=== PATIENT | male | born 1960 | race Two or more races ===

== ENCOUNTER 2022-09-15 17:19 | Inpatient (IN) | payer BC, OTHER ==
[~2022-09-15] VITALS: Ht 175.3 cm; Wt 71.9 kg
[2022-09-15 18:18] LABS: Basophils # (auto) 0.1 10 ^3/uL (0-0.2); Eosinophils # (auto) 0 10 ^3/uL (0-0.8); Hemoglobin 9.7 g/dL (13.5-17.5); Mean Corpuscular Hemoglobin 23.4 pg (28.0-32.0); Nucleated Red Blood Cells % 0.1 %
[2022-09-15 18:19] LABS: Basophils % (auto) 0.3 % (0.0-2.0); Hematocrit 31.4 % (41.0-53.0); Lymphocytes # (auto) 0.7 10 ^3/uL (0.4-5.4); Lymphocytes % (auto) 3.6 % (10.0-50.0); Mean Corpuscular Volume 75.6 fL (80.0-100.0); Monocytes % (auto) 4.9 % (0.0-12.0); Neutrophils # (auto) 18.5 10 ^3/uL (1.6-8.6); Neutrophils % (auto) 91.2 % (37.0-80.0); Red Blood Cells 4.16 10^6/uL (4.5-5.90); White Blood Cell 20.3 10^3/uL (4.4-10.8)
[2022-09-15 18:25] LABS: Red Cell Distribution Width 20.8 % (11.8-14.3)
[2022-09-15 18:43] LABS: Albumin 1.8 g/dL (3.4-5.0); Calcium 8.7 mg/dL (8.5-10.1); Potassium 5.5 mmol/L (3.5-5.1)
[2022-09-15 18:47] LABS: BUN/Creatinine Ratio 45.8 (10.0-20.0); Bilirubin, Total 1.4 mg/dL (0.2-1.0); Total Protein 8.2 g/dL (6.4-8.2)
[2022-09-15] MEDS ORDERED: HYDROmorphone HCL 2 MG/ML VL/or syr IV ONE (21:00)
[2022-09-15] MEDS ORDERED: SODIUM CHLORIDE 0.9% 500 ML IV ONE (21:00)
[2022-09-15] MEDS ORDERED: ACETAMINOPHEN 325 MG TAB PO ONE (21:00)
[2022-09-15] MEDS ORDERED: ceFAZolin 1GM/50ML 50 ML IV ONE (21:00)
[2022-09-15] MEDS ORDERED: ONDANSETRON HCL 4 MG/2 ML VIAL IV ONE (21:00)
[2022-09-15] MEDS ORDERED: ASPirin 81 mg TAB PO ONE (21:15)
[2022-09-15 22:43] LABS: Urine Bacteria NONE SEEN /hpf (None Seen); Urine Blood Negative /uL (Negative); Urine Hyaline Cast FEW /lpf (0 - 2); Urine Specific Gravity 1.022 (1.001-1.035); Urine WBC 1 /hpf (0 - 3)
[2022-09-16] MEDS ORDERED: SODIUM CHLORIDE 0.9% 500 ML IV ONE (01:30)
[2022-09-16] MEDS ORDERED: SODIUM BICARBONATE 8.4 % INJ 50ML VIAL IV ONE (01:30)
[2022-09-16] MEDS ORDERED: VANCOMYCIN PER PHARMACY 0 MG IV SCH (03:30)
[2022-09-16] MEDS ORDERED: NITROGLYCERIN 0.4 MG SL TAB SL PRN (03:30)
[2022-09-16] MEDS ORDERED: MORPHINE SULFATE INJ 2 MG/ml SYRG IV PRN (03:30)
[2022-09-16] MEDS ORDERED: ACETAMINOPHEN 325 MG TAB PO PRN (03:30)
[2022-09-16] MEDS ORDERED: HYDROcodone-ACET 5/325MG TAB PO PRN (03:30)
[2022-09-16] MEDS ORDERED: ONDANSETRON HCL 4 MG/2 ML VIAL IV PRN (03:30)
[2022-09-16] MEDS ORDERED: VANCOMYCIN 1GM/250ML 250 ML IV ONE (03:45)
[2022-09-16] MEDS: ALBUMIN 25% 50 ML IV SCH ×3 (03:46→19:30)
[2022-09-16] MEDS: FUROSEMIDE 20 MG/2 ML VIAL IV SCH ×2 (06:04→18:06)
[2022-09-16 07:11] LABS: Basophils # (auto) 0.1 10 ^3/uL (0-0.2); Eosinophils # (auto) 0 10 ^3/uL (0-0.8); Eosinophils % (auto) 0.3 % (0.0-7.0)
[2022-09-16 07:13] LABS: Basophils % (auto) 0.8 % (0.0-2.0); Hematocrit 28.9 % (41.0-53.0); Hemoglobin 9.1 g/dL (13.5-17.5); Lymphocytes # (auto) 0.5 10 ^3/uL (0.4-5.4); Lymphocytes % (auto) 3.7 % (10.0-50.0); Mean Corpuscular Hgb Conc. 31.4 g/dL (32.0-36.0); Mean Corpuscular Volume 76.4 fL (80.0-100.0); Monocytes % (auto) 7.4 % (0.0-12.0); Neutrophils # (auto) 11.9 10 ^3/uL (1.6-8.6); Neutrophils % (auto) 87.8 % (37.0-80.0); Nucleated Red Blood Cells % 0.2 %; Red Blood Cells 3.78 10^6/uL (4.5-5.90); White Blood Cell 13.5 10^3/uL (4.4-10.8)
[2022-09-16 07:15] LABS: Red Cell Distribution Width 20.5 % (11.8-14.3)
[2022-09-16 07:31] LABS: Albumin 1.6 g/dL (3.4-5.0); Calcium 8.4 mg/dL (8.5-10.1); Potassium 4.8 mmol/L (3.5-5.1)
[2022-09-16 07:35] LABS: BUN/Creatinine Ratio 44.4 (10.0-20.0); Bilirubin, Total 1.4 mg/dL (0.2-1.0); Total Protein 7.8 g/dL (6.4-8.2)
[2022-09-16] MEDS ORDERED: ENOXAPARIN SOD 40 MG/0.4 ML SYRINGE SC SCH (10:00)
[2022-09-16] MEDS: PANTOPRAZOLE 40 MG TAB PO SCH (10:14)
[2022-09-16] MEDS: CARVEDILOL 3.125 MG TAB PO SCH ×2 (10:14→23:05)
[2022-09-16] MEDS: ASPirin 81 mg TAB PO SCH (10:14)
[2022-09-16] MEDS ORDERED: DIGOXIN (250MCG/ML) 2 ML AMPULE IV ONE (13:00)
[2022-09-16 13:35] LABS: Magnesium 2.3 mg/dL (1.6-2.6)
[2022-09-16] MEDS: VANCOMYCIN 1GM/250ML 250 ML IV SCH (20:18)
[2022-09-16 22:53] VITALS: BP 105/66
[2022-09-16] MEDS ORDERED: ALBUMIN 25% 50 ML IV SCH (23:00)
[2022-09-16] MEDS: ATORVASTATIN 20 MG TAB PO SCH (23:04)
[2022-09-16] MEDS: ENOXAPARIN SOD 100 MG/1 ML SYRINGE SC SCH (23:06)
[2022-09-17] MEDS ORDERED: DIGOXIN 0.125 MG TAB PO ONE (00:45)
[2022-09-17] MEDS ORDERED: ALBUMIN 25% 50 ML IV ONE ×2 (00:45→01:45)
[2022-09-17] MEDS: FUROSEMIDE 20 MG/2 ML VIAL IV SCH ×2 (05:41→18:23)
[2022-09-17 07:15] LABS: Basophils # (auto) 0 10 ^3/uL (0-0.2); Basophils % (auto) 0.2 % (0.0-2.0); Eosinophils # (auto) 0.1 10 ^3/uL (0-0.8); Eosinophils % (auto) 0.7 % (0.0-7.0); Monocytes # (auto) 0.9 10 ^3/uL (0-1.3); White Blood Cell 11.5 10^3/uL (4.4-10.8)
[2022-09-17 07:18] LABS: Hematocrit 28.4 % (41.0-53.0); Lymphocytes # (auto) 0.6 10 ^3/uL (0.4-5.4); Lymphocytes % (auto) 4.8 % (10.0-50.0); Mean Corpuscular Hemoglobin 24.2 pg (28.0-32.0); Mean Corpuscular Hgb Conc. 31.7 g/dL (32.0-36.0); Mean Corpuscular Volume 76.3 fL (80.0-100.0); Neutrophils # (auto) 9.9 10 ^3/uL (1.6-8.6); Neutrophils % (auto) 86.3 % (37.0-80.0); Red Blood Cells 3.72 10^6/uL (4.5-5.90)
[2022-09-17 07:35] LABS: Albumin 1.8 g/dL (3.4-5.0); BUN/Creatinine Ratio 50.5 (10.0-20.0); Bilirubin, Total 1.1 mg/dL (0.2-1.0); Calcium 8.4 mg/dL (8.5-10.1); Total Protein 7.3 g/dL (6.4-8.2)
[2022-09-17 07:41] LABS: Red Cell Distribution Width 20.3 % (11.8-14.3)
[2022-09-17 08:45] VITALS: BP 90/51
[2022-09-17] MEDS: ASPirin 81 mg TAB PO SCH (10:37)
[2022-09-17] MEDS: PANTOPRAZOLE 40 MG TAB PO SCH (10:37)
[2022-09-17] MEDS: DIGOXIN 0.125 MG TAB PO SCH (10:37)
[2022-09-17] MEDS: ENOXAPARIN SOD 100 MG/1 ML SYRINGE SC SCH ×2 (10:38→22:35)
[2022-09-17] MEDS: CARVEDILOL 3.125 MG TAB PO SCH ×2 (10:38→22:34)
[2022-09-17] MEDS ORDERED: cefTRIAXone 1GM/50ML D5W 50 ML IV ONE (11:45)
[2022-09-17] MEDS: VANCOMYCIN 1GM/250ML 250 ML IV SCH (12:42)
[2022-09-17 12:44] VITALS: BP 100/59
[2022-09-17 16:20] VITALS: BP_SYST 100; BP_SYST 91; BP_DIAS 58; BP_DIAS 59
[2022-09-17 22:00] VITALS: BP 94/56
[2022-09-17] MEDS: ATORVASTATIN 20 MG TAB PO SCH (22:34)
[2022-09-18] MEDS: VANCOMYCIN 1GM/250ML 250 ML IV SCH (04:17)
[2022-09-18 05:00] VITALS: BP 98/58
[2022-09-18 05:49] LABS: Basophils # (auto) 0 10 ^3/uL (0-0.2); Basophils % (auto) 0.1 % (0.0-2.0); Eosinophils # (auto) 0.1 10 ^3/uL (0-0.8); Eosinophils % (auto) 0.5 % (0.0-7.0); Hematocrit 30.4 % (41.0-53.0); Hemoglobin 9.3 g/dL (13.5-17.5); Lymphocytes # (auto) 0.7 10 ^3/uL (0.4-5.4); Lymphocytes % (auto) 5.4 % (10.0-50.0); Mean Corpuscular Hgb Conc. 30.8 g/dL (32.0-36.0); Mean Corpuscular Volume 78.1 fL (80.0-100.0); Monocytes # (auto) 0.8 10 ^3/uL (0-1.3); Monocytes % (auto) 5.9 % (0.0-12.0); Neutrophils # (auto) 11.2 10 ^3/uL (1.6-8.6); Neutrophils % (auto) 88.1 % (37.0-80.0); Red Blood Cells 3.89 10^6/uL (4.5-5.90); White Blood Cell 12.8 10^3/uL (4.4-10.8)
[2022-09-18 05:50] LABS: Red Cell Distribution Width 20.4 % (11.8-14.3)
[2022-09-18 05:52] LABS: BUN/Creatinine Ratio 47.4 (10.0-20.0); Calcium 8.4 mg/dL (8.5-10.1); Potassium 4.2 mmol/L (3.5-5.1)
[2022-09-18] MEDS: FUROSEMIDE 20 MG/2 ML VIAL IV SCH ×2 (06:00→18:55)
[2022-09-18 08:00] VITALS: BP 92/57
[2022-09-18] MEDS ORDERED: cefTRIAXone 1GM/50ML D5W 50 ML IV SCH (09:00)
[2022-09-18] MEDS: DIGOXIN 0.125 MG TAB PO SCH (10:31)
[2022-09-18] MEDS: PANTOPRAZOLE 40 MG TAB PO SCH (10:31)
[2022-09-18] MEDS: ASPirin 81 mg TAB PO SCH (10:31)
[2022-09-18] MEDS: ENOXAPARIN SOD 100 MG/1 ML SYRINGE SC SCH (10:31)
[2022-09-18] MEDS: CARVEDILOL 3.125 MG TAB PO SCH ×2 (10:32→21:57)
[2022-09-18 12:00] VITALS: BP 99/62
[2022-09-18 16:00] VITALS: BP 96/56
[2022-09-18] MEDS ORDERED: AMOXICILLIN/CLAVUL 875 MG TAB PO ONE (20:30)
[2022-09-18] MEDS: APIXABAN 5 MG TAB PO SCH (21:57)
[2022-09-18] MEDS: ATORVASTATIN 20 MG TAB PO SCH (21:57)
[2022-09-18 22:00] VITALS: BP 109/69
[2022-09-19 05:20] LABS: Basophils # (auto) 0.1 10 ^3/uL (0-0.2); Eosinophils # (auto) 0.1 10 ^3/uL (0-0.8); Lymphocytes # (auto) 0.7 10 ^3/uL (0.4-5.4); Lymphocytes % (auto) 4.5 % (10.0-50.0); Mean Corpuscular Volume 76.2 fL (80.0-100.0)
[2022-09-19 05:22] LABS: Basophils % (auto) 0.6 % (0.0-2.0); Eosinophils % (auto) 0.7 % (0.0-7.0); Hematocrit 29.7 % (41.0-53.0); Hemoglobin 9.3 g/dL (13.5-17.5); Mean Corpuscular Hemoglobin 23.8 pg (28.0-32.0); Mean Corpuscular Hgb Conc. 31.2 g/dL (32.0-36.0); Monocytes % (auto) 6.3 % (0.0-12.0); Neutrophils # (auto) 13.6 10 ^3/uL (1.6-8.6); Neutrophils % (auto) 87.9 % (37.0-80.0); Red Blood Cells 3.89 10^6/uL (4.5-5.90); White Blood Cell 15.5 10^3/uL (4.4-10.8)
[2022-09-19] MEDS: FUROSEMIDE 20 MG/2 ML VIAL IV SCH ×2 (05:25→18:43)
[2022-09-19 05:31] LABS: Red Cell Distribution Width 20.6 % (11.8-14.3)
[2022-09-19 05:49] LABS: BUN/Creatinine Ratio 50.5 (10.0-20.0); Calcium 8.5 mg/dL (8.5-10.1); Potassium 4.8 mmol/L (3.5-5.1)
[2022-09-19 08:00] VITALS: BP 97/61
[2022-09-19] MEDS: ASPirin 81 mg TAB PO SCH (09:52)
[2022-09-19] MEDS: APIXABAN 5 MG TAB PO SCH ×2 (09:52→21:35)
[2022-09-19] MEDS: PANTOPRAZOLE 40 MG TAB PO SCH (09:52)
[2022-09-19] MEDS: CARVEDILOL 3.125 MG TAB PO SCH ×2 (09:53→21:35)
[2022-09-19] MEDS: DIGOXIN 0.125 MG TAB PO SCH (09:54)
[2022-09-19] MEDS ORDERED: AMOXICILLIN/CLAVUL 875 MG TAB PO SCH (10:00)
[2022-09-19] MEDS ORDERED: ceFAZolin 1GM/50ML 50 ML IV ONE (10:45)
[2022-09-19] MEDS: ceFAZolin 1GM/50ML 50 ML IV SCH ×2 (11:33→18:43)
[2022-09-19 12:00] VITALS: BP 101/58
[2022-09-19 16:00] VITALS: BP 95/59
[2022-09-19] MEDS: ATORVASTATIN 20 MG TAB PO SCH (21:36)
[2022-09-19 22:00] VITALS: BP 105/66
[2022-09-20] MEDS: ceFAZolin 1GM/50ML 50 ML IV SCH ×2 (02:48→09:43)
[2022-09-20 05:00] VITALS: BP 100/61
[2022-09-20 05:40] LABS: Eosinophils # (auto) 0.1 10 ^3/uL (0-0.8); Lymphocytes # (auto) 0.5 10 ^3/uL (0.4-5.4); Lymphocytes % (auto) 2.9 % (10.0-50.0); Nucleated Red Blood Cells % 0.1 %
[2022-09-20 05:42] LABS: Basophils # (auto) 0.1 10 ^3/uL (0-0.2); Basophils % (auto) 0.7 % (0.0-2.0); Eosinophils % (auto) 0.5 % (0.0-7.0); Hematocrit 27.5 % (41.0-53.0); Hemoglobin 9.1 g/dL (13.5-17.5); Mean Corpuscular Hemoglobin 24.5 pg (28.0-32.0); Mean Corpuscular Hgb Conc. 33.2 g/dL (32.0-36.0); Mean Corpuscular Volume 73.8 fL (80.0-100.0); Monocytes % (auto) 5.9 % (0.0-12.0); Neutrophils # (auto) 15.1 10 ^3/uL (1.6-8.6); Red Blood Cells 3.73 10^6/uL (4.5-5.90); White Blood Cell 16.8 10^3/uL (4.4-10.8)
[2022-09-20 05:45] LABS: Red Cell Distribution Width 20.3 % (11.8-14.3)
[2022-09-20 05:58] LABS: Potassium 4.2 mmol/L (3.5-5.1)
[2022-09-20 06:05] LABS: Albumin 1.7 g/dL (3.4-5.0); BUN/Creatinine Ratio 44.1 (10.0-20.0); Bilirubin, Total 0.6 mg/dL (0.2-1.0); Calcium 8.5 mg/dL (8.5-10.1); Total Protein 7.8 g/dL (6.4-8.2)
[2022-09-20] MEDS: FUROSEMIDE 20 MG/2 ML VIAL IV SCH ×2 (06:36→18:00)
[2022-09-20 08:00] VITALS: BP 96/60
[2022-09-20] MEDS: PANTOPRAZOLE 40 MG TAB PO SCH (09:43)
[2022-09-20] MEDS: APIXABAN 5 MG TAB PO SCH ×2 (09:43→21:42)
[2022-09-20] MEDS: ASPirin 81 mg TAB PO SCH (09:44)
[2022-09-20] MEDS: CARVEDILOL 3.125 MG TAB PO SCH ×3 (09:44→22:00)
[2022-09-20] MEDS: DIGOXIN 0.125 MG TAB PO SCH (09:45)
[2022-09-20] MEDS: DICLOXACILLIN 500 MG PO SCH ×3 (11:45→23:43)
[2022-09-20 12:00] VITALS: BP 93/52
[2022-09-20] MEDS ORDERED: levoFLOXacin 500MG 100 ML IV ONE (14:45)
[2022-09-20] MEDS ORDERED: SPIRONOLACTONE 25 MG TAB PO ONE (14:45)
[2022-09-20 16:00] VITALS: BP 103/63
[2022-09-20] MEDS: ATORVASTATIN 20 MG TAB PO SCH (21:42)
[2022-09-20 22:00] VITALS: BP_SYST 103; BP_SYST 117; BP_DIAS 52; BP_DIAS 68
[2022-09-21 05:00] VITALS: BP 112/61
[2022-09-21] MEDS: DICLOXACILLIN 500 MG PO SCH ×4 (05:45→23:45)
[2022-09-21 05:59] LABS: Eosinophils # (auto) 0.1 10 ^3/uL (0-0.8)
[2022-09-21 06:01] LABS: Basophils # (auto) 0.1 10 ^3/uL (0-0.2); Basophils % (auto) 0.4 % (0.0-2.0); Eosinophils % (auto) 0.5 % (0.0-7.0); Hematocrit 29.4 % (41.0-53.0); Hemoglobin 9.4 g/dL (13.5-17.5); Lymphocytes # (auto) 0.5 10 ^3/uL (0.4-5.4); Lymphocytes % (auto) 3.2 % (10.0-50.0); Mean Corpuscular Hemoglobin 23.9 pg (28.0-32.0); Mean Corpuscular Volume 74.6 fL (80.0-100.0); Monocytes % (auto) 5.7 % (0.0-12.0); Neutrophils # (auto) 15.2 10 ^3/uL (1.6-8.6); Neutrophils % (auto) 90.2 % (37.0-80.0); Red Blood Cells 3.94 10^6/uL (4.5-5.90); White Blood Cell 16.8 10^3/uL (4.4-10.8)
[2022-09-21 06:07] LABS: Potassium 4.4 mmol/L (3.5-5.1)
[2022-09-21 06:19] LABS: Albumin 1.6 g/dL (3.4-5.0); BUN/Creatinine Ratio 39.1 (10.0-20.0); Bilirubin, Total 0.6 mg/dL (0.2-1.0); Calcium 8.6 mg/dL (8.5-10.1); Total Protein 7.8 g/dL (6.4-8.2)
[2022-09-21 06:22] LABS: Red Cell Distribution Width 20.6 % (11.8-14.3)
[2022-09-21] MEDS: FUROSEMIDE 20 MG/2 ML VIAL IV SCH ×2 (06:46→18:17)
[2022-09-21 08:33] VITALS: BP 101/71
[2022-09-21] MEDS: levoFLOXacin 500MG 100 ML IV SCH (10:02)
[2022-09-21] MEDS: ASPirin 81 mg TAB PO SCH (10:03)
[2022-09-21] MEDS: DIGOXIN 0.125 MG TAB PO SCH (10:03)
[2022-09-21] MEDS: SPIRONOLACTONE 25 MG TAB PO SCH (10:04)
[2022-09-21] MEDS: PANTOPRAZOLE 40 MG TAB PO SCH (10:04)
[2022-09-21] MEDS: APIXABAN 5 MG TAB PO SCH ×2 (10:04→22:20)
[2022-09-21] MEDS: CARVEDILOL 3.125 MG TAB PO SCH ×2 (10:05→22:20)
[2022-09-21 13:00] VITALS: BP 99/51
[2022-09-21 16:38] VITALS: BP 97/62
[2022-09-21 21:00] VITALS: BP 103/65
[2022-09-21] MEDS: ATORVASTATIN 20 MG TAB PO SCH (22:20)
[2022-09-22 05:00] VITALS: BP 94/60
[2022-09-22] MEDS: DICLOXACILLIN 500 MG PO SCH ×4 (05:36→23:45)
[2022-09-22] MEDS: FUROSEMIDE 20 MG/2 ML VIAL IV SCH ×2 (05:37→18:00)
[2022-09-22 06:28] LABS: Basophils % (auto) 0.3 % (0.0-2.0); Hemoglobin 9.6 g/dL (13.5-17.5); Lymphocytes # (auto) 0.7 10 ^3/uL (0.4-5.4); Lymphocytes % (auto) 3.8 % (10.0-50.0)
[2022-09-22 06:32] LABS: Basophils # (auto) 0.1 10 ^3/uL (0-0.2); Eosinophils # (auto) 0.1 10 ^3/uL (0-0.8); Eosinophils % (auto) 0.4 % (0.0-7.0); Hematocrit 29.9 % (41.0-53.0); Mean Corpuscular Hemoglobin 24.4 pg (28.0-32.0); Mean Corpuscular Hgb Conc. 32.2 g/dL (32.0-36.0); Mean Corpuscular Volume 75.7 fL (80.0-100.0); Monocytes % (auto) 5.8 % (0.0-12.0); Neutrophils # (auto) 15.3 10 ^3/uL (1.6-8.6); Neutrophils % (auto) 89.7 % (37.0-80.0); Red Blood Cells 3.95 10^6/uL (4.5-5.90)
[2022-09-22 06:35] LABS: Red Cell Distribution Width 20.6 % (11.8-14.3)
[2022-09-22 06:38] LABS: Calcium 8.4 mg/dL (8.5-10.1)
[2022-09-22 06:47] LABS: BUN/Creatinine Ratio 37.4 (10.0-20.0)
[2022-09-22 09:00] VITALS: BP 107/60
[2022-09-22] MEDS: APIXABAN 5 MG TAB PO SCH ×2 (09:28→22:00)
[2022-09-22] MEDS: PANTOPRAZOLE 40 MG TAB PO SCH (09:28)
[2022-09-22] MEDS: levoFLOXacin 500MG 100 ML IV SCH (09:28)
[2022-09-22] MEDS ORDERED: CAR3125T PO (09:29)
[2022-09-22] MEDS: DIGOXIN 0.125 MG TAB PO SCH (09:29)
[2022-09-22] MEDS ORDERED: FURO1TAB33 PO (09:29)
[2022-09-22] MEDS ORDERED: APIX5TAB PO (09:29)
[2022-09-22] MEDS: ASPirin 81 mg TAB PO SCH (09:29)
[2022-09-22] MEDS: SPIRONOLACTONE 25 MG TAB PO SCH (09:29)
[2022-09-22] MEDS ORDERED: ATOR20TA50 PO (09:29)
[2022-09-22] MEDS ORDERED: SPIR25TA PO (09:29)
[2022-09-22] MEDS ORDERED: DIGO1TAB48 PO (09:29)
[2022-09-22] MEDS ORDERED: LEVO750T64 PO (09:29)
[2022-09-22] MEDS ORDERED: ASPI-325 PO (09:29)
[2022-09-22] MEDS: CARVEDILOL 3.125 MG TAB PO SCH ×2 (09:30→22:00)
[2022-09-22 13:00] VITALS: BP 103/58
[2022-09-22 13:21] VITALS: BP 103/58
[2022-09-22 17:00] VITALS: BP 95/66
[2022-09-22 22:00] VITALS: BP 106/66
[2022-09-22] MEDS: ATORVASTATIN 20 MG TAB PO SCH (22:00)
[2022-09-23 05:00] VITALS: BP 95/58
[2022-09-23] MEDS: DICLOXACILLIN 500 MG PO SCH ×2 (05:45→11:45)
[2022-09-23] MEDS: FUROSEMIDE 20 MG/2 ML VIAL IV SCH ×2 (06:10→18:00)
[2022-09-23 09:00] VITALS: BP 113/62
[2022-09-23] MEDS: APIXABAN 5 MG TAB PO SCH ×2 (10:14→21:45)
[2022-09-23] MEDS: ASPirin 81 mg TAB PO SCH (10:14)
[2022-09-23] MEDS: DIGOXIN 0.125 MG TAB PO SCH (10:15)
[2022-09-23] MEDS: SPIRONOLACTONE 25 MG TAB PO SCH (10:15)
[2022-09-23] MEDS: CARVEDILOL 3.125 MG TAB PO SCH ×2 (10:16→21:46)
[2022-09-23] MEDS: PANTOPRAZOLE 40 MG TAB PO SCH (10:17)
[2022-09-23] MEDS: levoFLOXacin 500MG 100 ML IV SCH (10:19)
[2022-09-23 13:15] VITALS: BP 92/65
[2022-09-23 16:52] VITALS: BP 103/60
[2022-09-23 20:00] VITALS: BP 109/69
[2022-09-23] MEDS: ATORVASTATIN 20 MG TAB PO SCH (21:46)
[2022-09-23 22:00] VITALS: BP 109/69
[2022-09-24 05:00] VITALS: BP 104/67
[2022-09-24] MEDS: FUROSEMIDE 20 MG/2 ML VIAL IV SCH (06:24)
[2022-09-24 09:00] VITALS: BP 112/66
[2022-09-24] MEDS: DIGOXIN 0.125 MG TAB PO SCH (10:15)
[2022-09-24] MEDS: PANTOPRAZOLE 40 MG TAB PO SCH (10:15)
[2022-09-24] MEDS: APIXABAN 5 MG TAB PO SCH (10:20)
[2022-09-24] MEDS: CARVEDILOL 3.125 MG TAB PO SCH (10:20)
[2022-09-24] MEDS: ASPirin 81 mg TAB PO SCH (10:21)
[2022-09-24] MEDS: levoFLOXacin 500MG 100 ML IV SCH (10:21)
[2022-09-24] MEDS: SPIRONOLACTONE 25 MG TAB PO SCH (10:21)
[2022-09-24 13:00] VITALS: BP 110/63
[2022-09-24 17:00] VITALS: BP 104/73
== END 2022-09-24 18:12 | disposition home health service (06) | DRG 280 ==
LOC: ER 17:19 → TELE 09-16 03:25 → TELE-CENTR 09-16 21:34
PROVIDERS: ADMIT Nurse Practitioner; ATTEND Internal Medicine Pulmonary Disease
DX: I50.43 Acute on chronic combined systolic (congestive) and diastolic (congestive) heart failure (principal); I21.A1 Myocardial infarction type 2; J69.0 Pneumonitis due to inhalation of food and vomit; L03.115 Cellulitis of right lower limb; E87.1 Hypo-osmolality and hyponatremia; N17.9 Acute kidney failure, unspecified; I31.39 Other pericardial effusion (noninflammatory); L03.116 Cellulitis of left lower limb; E87.5 Hyperkalemia; E88.09 Other disorders of plasma-protein metabolism, not elsewhere classified; I48.91 Unspecified atrial fibrillation; D63.8 Anemia in other chronic diseases classified elsewhere; A49.01 Methicillin susceptible Staphylococcus aureus infection, unspecified site; E11.22 Type 2 diabetes mellitus with diabetic chronic kidney disease; I27.20 Pulmonary hypertension, unspecified; N18.9 Chronic kidney disease, unspecified; Z20.822 Contact with and (suspected) exposure to COVID-19; Z60.2 Problems related to living alone; Z91.199 Patient's noncompliance with other medical treatment and regimen due to unspecified reason
CPT/HCPCS: 36415; 36600; 71045; 71046; 71250; 73590; 73630; 78582; 80048; 80053; 80061; 80162; 80202; 81001; 82805; 83036; 83605; 83735; 83880; 84443; 84484; 85025; 85379; 85652; 86141; 87040; 87077; 87186; 87205; 87426; 93005; 93306; 93970; 96361; 96365; 96366; 96367; 96372; 96375; 97110; 97116; 97163; 97530; G0378; J0690; J0696; J1956; J2405